=== PATIENT | male | born 2000 | race African-American/Black ===

== ENCOUNTER 2018-06-04 10:06 | Emergency (ER) | payer SELFPAY | END 2018-06-04 11:26 | disposition left against medical advice (07) | LOC: ER 10:06 | DX: Z53.21 Procedure and treatment not carried out due to patient leaving prior to being seen by health care provider (principal) ==

== ENCOUNTER 2023-12-18 21:40 | Emergency (ER) | payer SELFPAY ==
[~2023-12-18] VITALS: Ht 182.9 cm; Wt 70.0 kg
[2023-12-18 22:00] VITALS: O2SAT 100
[2023-12-19] MEDS: ACETAMINOPHEN 325MG TABLET PO STA (00:47)
[2023-12-19] MEDS ORDERED: CYCL5TAB MT (01:02)
[2023-12-19] MEDS ORDERED: NAPR-681 PO (01:02)
[2023-12-19 01:47] VITALS: BP 117/65; PULSE 66; RESP 18; TEMP 36.89184; O2SAT 100
== END 2023-12-19 01:47 | disposition home or self-care (01) ==
LOC: ER 21:40
DX: S39.012A Strain of muscle, fascia and tendon of lower back, initial encounter (principal); R51.9 Headache, unspecified; V73.6XXA Passenger on bus injured in collision with car, pick-up truck or van in traffic accident, initial encounter; Y93.89 Activity, other specified; Y92.89 Other specified places as the place of occurrence of the external cause; Y99.8 Other external cause status
CPT/HCPCS: 71045; 72100; 99284

== ENCOUNTER 2024-11-13 12:01 | Emergency (ER) | payer OTHER ==
[~2024-11-13] VITALS: Ht 177.8 cm; Wt 63.0 kg
[~2024-11-13 12:01] MED LIST: CYCL5TAB3 MT; NAPR-681 PO
[2024-11-13 12:07] VITALS: BP 146/94; PULSE 99; RESP 18; TEMP 36.7; O2SAT 100; O2SAT 99
== END 2024-11-13 12:23 | disposition home or self-care (01) ==
LOC: ER 12:01
DX: Z04.1 Encounter for examination and observation following transport accident (principal); V89.2XXA Person injured in unspecified motor-vehicle accident, traffic, initial encounter; Y92.410 Unspecified street and highway as the place of occurrence of the external cause; Y93.89 Activity, other specified; Y99.8 Other external cause status
CPT/HCPCS: 99282

== ENCOUNTER 2024-11-27 20:50 | Emergency (ER) | payer SELFPAY ==
[~2024-11-27] VITALS: Ht 182.9 cm; Wt 70.0 kg
[2024-11-27 20:57] VITALS: BP 127/75; TEMP 36.7; O2SAT 98
[2024-11-27 21:01] VITALS: PULSE 66; RESP 16; O2SAT 100
== END 2024-11-27 21:51 ==
LOC: ER 20:50
DX: Z48.02 Encounter for removal of sutures (principal); Z53.21 Procedure and treatment not carried out due to patient leaving prior to being seen by health care provider